=== PATIENT | male | born 1985 | race Caucasian/White ===

== ENCOUNTER 2018-12-04 05:53 | Day surgery (SDC) | payer OTHER ==
[2018-12-04] MEDS ORDERED: ROCURONIUM 50 MG/5 ML VIAL IVP ONE (05:54)
[2018-12-04] MEDS ORDERED: GLYCOPYRROLATE 1 MG/5 ML VIAL IVP ONE (05:54)
[2018-12-04] MEDS ORDERED: DEXAMETHASONE 4 MG/ML VIAL IVP ONE (05:54)
[2018-12-04] MEDS ORDERED: PROPOFOL 200 MG/20 ML VIAL IVP ONE (05:54)
[2018-12-04] MEDS ORDERED: NEOSTIGMINE 1 MG/1 ML 10 ML MDV IVP ONE (05:54)
[2018-12-04] MEDS ORDERED: KETOROLAC 30 MG/ML VIAL IVP ONE (05:54)
[2018-12-04] MEDS ORDERED: MIDAZOLAM 2 MG/2 ML VIAL IVP ONE (05:54)
[2018-12-04] MEDS ORDERED: fentaNYL 100 MCG/2 ML VIAL IVP ONE (05:54)
[2018-12-04] MEDS ORDERED: LACTATED RINGERS 1,000 ML IV ONE ×2 (06:19→10:06)
[2018-12-04] MEDS ORDERED: cefTRIAXone 2 GM VIAL ONE (06:58)
[2018-12-04] MEDS ORDERED: EPINEPHrine 1 MG/ML AMP ONE (07:18)
[2018-12-04] MEDS ORDERED: BUPIVACAINE 0.25% PF 30 ML VIAL ONE (07:42)
--- NOTE | 2018-12-04 08:18 | ANESTHESIA ---
Pre-Anesthesia VS, & Labs - Diagnosis R shoulder labral tear - Procedure R shoulder arthroscopy. Labral repair, possible biceps tenodesis Vital Signs: Temp Pulse Resp BP Pulse Ox 37.5 C 56 L 16 127/73 98 12/04/18 06:36 12/04/18 06:36 12/04/18 06:36 12/04/18 06:36 12/04/18 06:36 Height 5 ft 11 in Weight (kg) 113.4 kg - NPO >8 hours Home Medications and Allergies Home Medications: Ambulatory Orders Melatonin 5 mg PO PRN 12/01/18 Multivitamin [Daily Multiple Vitamin] 1 each PO 12/01/18 Trazodone HCl 50 mg PO PRN 12/01/18 Melatonin 5 mg PO PRN 12/01/18 Multivitamin [Daily Multiple Vitamin] 1 each PO 12/01/18 Trazodone HCl 50 mg PO PRN 12/01/18 Allergies/Adverse Reactions: Allergies Allergy/AdvReac Type Severity Reaction Status Date / Time No Known Drug Allergies Allergy Verified 12/01/18 11:17 Anes History & Medical History - Anesthetic History Anesthesia Complications: reports: No previous complications Family history of Anesthesia Complications: Denies Family history of Malignant Hyperthermia: Denies - Medical History Cardiovascular: reports: None Pulmonary: reports: Sleep apnea, CPAP use Gastrointestinal: reports: None Urinary: reports: None Musculoskeletal: reports: Other Endocrine/Autoimmune: reports: None Skin: reports: None - Surgical History Orthopedic: ACL reconstruction Exam General: Alert, Oriented x3, Cooperative Dental: WNL Mouth Opening: Greater than 4 Fingerbreadths Neck Mobility: Normal Mallampati classification: II Thyromental Distance: 4-6 cm Respiratory: Lungs clear Cardiovascular: Regular rate Neurological: Normal speech Mental/Cognitive Status: Alert/Oriented X3, Normal for patient Cognitive Status: Within normal limits Plan Anesthesia Type: General, Interscalene Block Regional Block: Per Surgeon's request for Post Op pain control Consent for Procedure(s) Verified and Reviewed: Yes Code Status: Attempt Resuscitation ASA classification: 2-Mild systemic disease Is this case an emergency?: No
[2018-12-04] MEDS ORDERED: BUPIVACAINE 0.25% PF 30 ML VIAL SUBQ ONE ×2 (08:38)
[2018-12-04] MEDS ORDERED: ONDANSETRON 4 MG/2 ML VIAL IVP PRN (10:08)
[2018-12-04] MEDS ORDERED: oxyCODONE 5 MG TABLET PO PRN (10:08)
--- NOTE | 2018-12-04 10:19 | OPERATIVE REPORT ---
Operative Report - Other Other Information/Narrative: Date of Surgery: 04 December 2018 Pre-Op Diagnosis: Right biceps tendinitis. Partial-thickness rotator cuff tear. Possible labral tear Procedure: Right shoulder arthroscopy with intra-articular debridement. Rotator cuff debridement. Subacromial decompression. Open biceps tenodesis Postop Diagnosis: Right biceps tendinitis with SLAP tear, partial-thickness articular sided supraspinatus tear less than 50% of the insertion, posterior labrum stable Primary Surgeon: Dago Smiley Secondary Surgeon: Charanjit Bentley Complications: None EBL: 15 cc IMPLANTS: Arthrex fiber tack x1 POSTOPERATIVE PLAN: 0-2 weeks-Sling at all times. Pendulum exercises 5 times per day. 2-6 weeks-Passive and active range of motion without limitations. No flexion of the elbow 6-12 weeks-may begin active flexion of the elbow but without resistance. 12 weeksbegin strengthening of elbow flexion EXAMINATION UNDER ANESTHESIA: ROM: Full Anterior load and shift: Stable Posterior load and shift: Grade 1 without crepitus Inferior sulcus: Stable ARTHROSCOPIC FINDINGS: Rotator interval: Injected with a degenerative tear Biceps tendon & SLAP: Moderate to severe fraying of the biceps tendon at its insertion. It was thickened and unhealthy. SLAP tear extended posteriorly Subscapularis: Intact, this was probed extensively and no tear was seen Rotator Cuff: Partial thickness articular sided tear of the leading edge of supraspinatus. This was debrided to a stable base. It represented less than 5 mm of insertion. Infraspinatus intact. HAGL: Normal Labrum: Small crack in the posterior labrum which was an extension of the SLAP tear, it was stable to probing but there was some fraying. The frayed material was debrided with a shaver. Glenoid Cartilage: Chronic transverse linear cartilage lesion was seen, borders were stable, no debridement was necessary Humeral Head Cartilage: Intact Subacromial space: Mild bursitis was debrided. There was no bursal sided rotator cuff tear INDICATION FOR SURGERY: 32-year-old male who injured his shoulder 2 years ago. He fell onto his outstretched arm. He had no instability or dislocation. There is pain to the anterior shoulder that was worse with overhead activities. A biceps tendon sheath injection provided 100% relief and he was able to get back to many activities. He was unable to lift weights secondary to weakness. We went into the surgery knowing a biceps tenodesis would be beneficial but there is a question of a posterior labral tear that would require repair. 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 Nonoperative managment failed to resolve symptoms. The risks, benefits, and alternatives were discussed. Risks included pain, bleeding, infection, damage to nearby structures, lack of symptom relief, implant complications, stiffness, need for further surgeries, DVT, PE, stroke, and even . He signed a written consent form. PROCEDURE IN DETAIL: The patient was met in the preoperative holding on the day of the procedure. Operative extremity was signed. Consent was verified. They desired to proceed. Regional anesthesia was obtained in the preoperative area. They were brought to the operating room and surrendered to anesthesia. Once general anesthesia was obtained they were placed in the lateral decubitus position with the operative side up. An axillary roll was placed and all bony prominences were well-padded. A surgical timeout was held to confirm the patient procedure, identity, procedure, laterality, allergies, images, and antibiotics. All were in agreement we proceeded. A standard diagnostic arthroscopy was performed utilizing posterior and anterosuperior portals. The anterosuperior portal was created under direct visualization and localized with a spinal needle. The 7 mm cannula was placed anteriorly. The findings of the diagnostic arthroscopy can be found above. Another anterior cannula was placed to allow and debridement of the rotator cuff. I then proceeded to use a shaver to debride the leading edge of the rotator cuff as well as the tears in the rotator interval and the fraying of the posterior labrum. All this was debrided to a stable base and final images were taken. I elected to not to take down the posterior labrum for 2 reasons. The first was that it did not seem unstable, and the second was that a rapid recovery is desired and that most of his symptoms seem to be related biceps tendon itself. I decided to perform the biceps procedure and then monitor his symptoms afterwards. If he has significant pain or problems we could then move forward with a labral repair at a later date if needed. SUBACROMIAL DECOMPRESSION: The instruments and cannula were then removed from the glenohumeral joint. The scope trocar was placed in the posterior portal and the acromion was felt. It was then inserted just under the acromion scraping along the bone until the CA ligament was felt. The scope trocar was then brought just lateral to the CA ligament and out the anterior incision. The cannula was then brought over the scope trocar arthroscope were inserted. The arthroscope was backed up until the shaver and arthroscope in the subacromial space. I then systemically debrided the bursa using a sucker shaver and radiofrequency ablation wand. A direct lateral incision was made and the bursectomy and decompression was completed through the lateral incision. All soft tissue was debrided from the underside of the acromion and the posterior edge of the CA ligament was lifted. Care was taken to keep the deltoid fascia intact. The rotator cuff was then evaluated and there was bursal sided tear. Final images were taken MINI OPEN BICEPS TENODESIS: A 5 cm incision was made near the axillary fold centered over the pectoralis major tendon. Electrocautery was used to obtain hemostasis. The fascia was opened with dissection scissors. Blunt digital dissection was used to identify the intertubercular groove just under the pectoralis major tendon. The long head of the biceps tendon was visualized within this interval. The short head of the biceps was retracted with my finger and the right angle was used to deliver the tendon of the long head of the biceps out of the wound. A friedman elevator was then used to debride all synovial tissue from the intertubercular groove. A fibertack was placed high within the groove. Both limbs of the fibertack were pulled on and it was well fixed. I then whipstitched the biceps tendon starting 2 cm proximal to the musculotendinous junction down to the musculotendinous junction and back up to the same 2 cm location with a single limb of the suture tack. The other suture was placed once through the tendon at the 2 cm location. I then cut all excess tendon off. The suture limb that was passed the single time was then pulled on and this reduced the tendon nicely into the groove. The elbow was fully straightened and there was no excess tension on the repair site. I then tied 7 reverse half hitches alternating to secure the tendon in its place. The wound was then irrigated copiously. The portal sites were then closed with 3-0 Monocryl buried. Any open incisions were closed with 2-0 Vicryl in the dermis and a running 3-0 Monocryl in the skin. Mastisol and Steri-Strips were applied. A sterile dressing and a sling was applied. A sling was placed. The patient was awakened and transferred to the recovery room.
[2018-12-04] MEDS ORDERED: ONDANSETRON 4 MG/2 ML VIAL ONE (11:09)
[2018-12-04 11:43] VITALS: BP 110/50
== END 2018-12-04 05:54 | disposition home or self-care (01) ==
LOC: SDS 05:53
PROVIDERS: ATTEND Orthopaedic Surgery
PROC: 0RBJ4ZZ Excision of Right Shoulder Joint, Percutaneous Endoscopic Approach (ICD-10-PCS; 2018-12-04)
PROC: 0LS10ZZ Reposition Right Shoulder Tendon, Open Approach (ICD-10-PCS; 2018-12-04)
PROC: 0RNJ4ZZ Release Right Shoulder Joint, Percutaneous Endoscopic Approach (ICD-10-PCS; principal; 2018-12-04 07:30)
DX: S43.431A Superior glenoid labrum lesion of right shoulder, initial encounter (principal); M75.21 Bicipital tendinitis, right shoulder; M75.101 Unspecified rotator cuff tear or rupture of right shoulder, not specified as traumatic; G47.33 Obstructive sleep apnea (adult) (pediatric)
CPT/HCPCS: 23430; 29822; 29826; C1713; J7120

== ENCOUNTER 2020-07-24 06:34 | Emergency (ER) | payer OTHER ==
[2020-07-24] MEDS ORDERED: LIDOCAINE-MPF 2% 9 ML in SODIUM CHLORIDE 0.9% 50 ML IV STA (06:53)
[2020-07-24] MEDS ORDERED: KETOROLAC 30 MG/ML VIAL IVP STA (06:53)
--- NOTE | 2020-07-24 07:00 | ED Physician Documentation ---
PD HPI ABD PAIN - Stated complaint Stated Complaint: ABD PX - Chief complaint Chief Complaint: Abd Pain - History obtained from History obtained from: Patient - History of Present Illness Timing - onset: How many hours ago (2) Timing - duration: Hours (2) Timing - details: Abrupt onset Pain level max: 10 Pain level now: 10 Quality: Aching, Sharp, Pain Location: LLQ Radiation: (L testicle and groin). No: Chest, Lower back, Left flank, Left shoulder, Right flank, Right shoulder, Upper back Improved by: Other (nothing) Worsened by: Other (nothing) Associated symptoms: No: Fever, Nausea, Vomiting, Hematemesis, Diarrhea, Constipation, Melena, Hematochezia, Dysuria, Hematuria, Chest pain Similar symptoms before: Diagnosis (kidney stone about 10 years ago) Recently seen: Not recently seen Review of Systems Constitutional: denies: Fever, Chills Nose: denies: Rhinorrhea / runny nose, Congestion Respiratory: denies: Cough GI: denies: Abdominal Pain, Nausea, Vomiting, Diarrhea : denies: Dysuria, Frequency, Hesitancy, Hematuria, Discharge Skin: denies: Rash Musculoskeletal: denies: Neck pain, Back pain Neurologic: denies: Headache PD PAST MEDICAL HISTORY - Past Medical History Past Medical History: Yes Cardiovascular: None Respiratory: Sleep apnea, CPAP use Endocrine/Autoimmune: None GI: None : Kidney stones HEENT: None Psych: None Musculoskeletal: Other Derm: None - Past Surgical History Past Surgical History: Yes Ortho: ACL reconstruction - Present Medications Home Medications: Ambulatory Orders Medication Instructions Recorded Confirmed Melatonin 5 mg PO QPM PRN 12/01/18 07/24/20 Multivitamin [Daily Multiple 1 each PO DAILY 12/01/18 07/24/20 Vitamin] Trazodone HCl 50 mg PO QPM PRN 12/01/18 07/24/20 HYDROcod/ACETAM 5/325 [[place] 5/325] 1 - 2 ea PO Q6H PRN #14 tablet 07/24/20 Ibuprofen [Motrin] 800 mg PO Q8H PRN #30 tablet 07/24/20 Ondansetron Odt [Zofran] 4 mg TL Q6H PRN #10 tablet 07/24/20 - Allergies Allergies/Adverse Reactions: Allergies Allergy/AdvReac Type Severity Reaction Status Date / Time No Known Drug Allergies Allergy Verified 07/24/20 06:40 - Social History Does the pt smoke?: No Smoking Status: Never smoker Does the pt drink ETOH?: Yes Does the pt have substance abuse?: No - Immunizations Immunizations are current?: Yes - POLST Patient has POLST: No PD ED PE NORMAL - Vitals Vital signs reviewed: Yes - General General: Alert and oriented X 3, No acute distress, Well developed/nourished - HEENT HEENT: PERRL, Moist mucous membranes - Neck Neck: Supple, no meningeal sign - Cardiac Cardiac: RRR, Strong equal pulses - Respiratory Respiratory: No respiratory distress, Clear bilaterally - Abdomen Abdomen: Normal bowel sounds, Soft, Non tender, Non distended - Male Male : Other (Normal testicular and scrotal exam.) - Back Back: No CVA TTP - Derm Derm: Warm and dry - Extremities Extremities: No calf tenderness / cord - Neuro Neuro: Alert and oriented X 3 - Psych Psych: Normal mood, Normal affect Results - Vitals Vitals: Vital Signs - 24 hr 07/24/20 07/24/20 06:37 08:39 Temperature 36.8 C Heart Rate 49 L 58 L Respiratory 18 16 Rate Blood Pressure 149/51 H 142/75 H O2 Saturation 99 100 Oxygen O2 Source Room air - Labs Labs: Laboratory Tests 07/24/20 07/24/20 07/24/20 06:56 06:56 06:56 WBC 7.0 RBC 4.90 Hgb 15.3 Hct 43.3 MCV 88.4 MCH 31.2 H MCHC 35.3 RDW 11.8 L Plt Count 127 L MPV 13.2 H Neut # (Auto) 5.2 Lymph # (Auto) 1.2 L Barry # (Auto) 0.5 Eos # (Auto) 0.1 Baso # (Auto) 0.0 Absolute Nucleated RBC 0.00 Nucleated RBC % 0.0 Sodium 141 Potassium 3.6 Chloride 104 Carbon Dioxide 27 Anion Gap 10.0 BUN 20 Creatinine 1.1 Estimated GFR (MDRD) 76 L Glucose 120 H Calcium 8.9 Total Bilirubin 0.8 AST 30 ALT 52 Alkaline Phosphatase 63 Total Protein 7.2 Albumin 4.3 Globulin 2.9 Albumin/Globulin Ratio 1.5 Lipase 31 Urine Color DARK YELLOW Urine Clarity CLEAR Urine pH 5.5 Ur Specific Dema >=1.030 H Urine Protein NEGATIVE Urine Glucose (UA) NEGATIVE Urine Ketones NEGATIVE Urine Occult Blood LARGE H Urine Nitrite NEGATIVE Urine Bilirubin NEGATIVE Urine Urobilinogen 0.2 (NORMAL) Ur Leukocyte Esterase NEGATIVE Urine RBC 11-25 H Urine WBC 0-3 Ur Squamous Epith Cells NONE SEEN Urine Crystals 0-2 Calcium Oxalate Urine Bacteria Few Ur Microscopic Review INDICATED Urine Culture Comments NOT INDICATED - Rads (name of study) CT abd/pelvis Radiology: Prelim report reviewed, EMP read contemporaneously, See rad report PD MEDICAL DECISION MAKING - ED course Complexity details: reviewed results, re-evaluated patient, considered differential, d/w patient ED course: Patient with left-sided ureteral stone. Pain well controlled with Toradol and lidocaine. Afebrile. No evidence of UTI. No evidence of sepsis. Will place on pain medications for home and have him follow-up with his doctor. Patient counseled regarding signs and symptoms for which I believe and urgent re- evaluation would be necessary. Patient with good understanding of and agreement to plan and is comfortable going home at this time This document was made in part using voice recognition software. While efforts are made to proofread this document, sound alike and grammatical errors may occur. IMPRESSION: 1. Obstructing 4 mm urinary stone in the distal left ureter with mild left hydroureteronephrosis. 2. Small additional nonobstructing bilateral renal stones as described. 3. Colonic diverticulosis without acute diverticulitis. Departure - Departure Disposition: 01 Home, Self Care Clinical Impression: Kidney stone on left side Condition: Good Instructions: ED Stone Renal W Colic Follow-Up: your,doctor in 1 week [Other] Prescriptions: Ibuprofen [Motrin] 800 mg PO Q8H PRN #30 tablet PRN Reason: PAIN &/OR FEVER HYDROcod/ACETAM 5/325 [[place] 5/325] 1 - 2 ea PO Q6H PRN #14 tablet PRN Reason: Pain Ondansetron Odt [Zofran] 4 mg TL Q6H PRN #10 tablet PRN Reason: Nausea / Vomiting Comments: Drink plenty of fluids. Return if you worsen. Follow-up with your doctor for further care. The Motrin will help to stop the spasming of the ureter, you can use the Vicodin for breakthrough pain. Do not drink alcohol or drive while on narcotic pain medicine. Note that many narcotic pain relievers also contain tylenol/acetaminophen. Please ensure that your total dose of acetaminophen from all sources does not exceed 3 grams (3000mg) per day. You may constipated on this medication, take a stool softener such as "Colace" twice a day while you are on it. Also recommend a [id number] laxative such as senna or MiraLAX any day that you do not have a bowel movement. If you received narcotic pain medication in the emergency department, do not drive or operate machinery for the next 24 hours. IMPRESSION: 1. Obstructing 4 mm urinary stone in the distal left ureter with mild left hydroureteronephrosis. 2. Small additional nonobstructing bilateral renal stones as described. 3. Colonic diverticulosis without acute diverticulitis. Discharge Date/Time: 07/24/20 09:06
[2020-07-24 07:02] LABS: BILIRUBIN,URINE NEGATIVE (NEGATIVE); GLUCOSE, URINE (UA) NEGATIVE (NEGATIVE); KETONES,URINE (UA) NEGATIVE (NEGATIVE); LEUKOCYTE ESTERASE, URINE NEGATIVE (NEGATIVE); NITRITE,URINE NEGATIVE (NEGATIVE); OCCULT BLOOD,URINE LARGE (NEGATIVE); PH,URINE 5.5 PH (5.0-7.5); PROTEIN,URINE NEGATIVE (NEGATIVE); UROBILINOGEN,URINE 0.2 (NORMAL) E.U./dL (NORMAL)
[2020-07-24 07:09] LABS: CLARITY,URINE CLEAR (CLEAR)
[2020-07-24 07:11] LABS: BASOPHILS % (AUTO) 0.3 %; EOSINOPHILS # (AUTO) 0.1 10^3/uL (0.0-0.7); EOSINOPHILS % (AUTO) 1.4 %; HCT - HEMATOCRIT 43.3 % (42.0-52.0); HGB - HEMOGLOBIN 15.3 g/dL (14.0-18.0); LYMPHOCYTES # (AUTO) 1.2 10^3/uL (1.5-3.5); LYMPHOCYTES % (AUTO) 17.7 %; MEAN CORPUSCULAR HEMOGLOBIN 31.2 pg (27.0-31.0); MEAN CORPUSCULAR HGB CONC 35.3 g/dL (32.0-36.0); MEAN CORPUSCULAR VOLUME 88.4 fL (80.0-94.0); MEAN PLATELET VOLUME 13.2 fL (7.4-11.4); MONOCYTES # (AUTO) 0.5 10^3/uL (0.0-1.0); MONOCYTES % (AUTO) 6.6 %; NEUTROPHILS # (AUTO) 5.2 10^3/uL (1.5-6.6); NEUTROPHILS % (AUTO) 73.9 %; PLT - PLATELET COUNT 127 10^3/uL (130-450); RED CELL DISTRIBUTION WIDTH 11.8 % (12.0-15.0)
[2020-07-24 07:15] LABS: ALBUMIN 4.3 g/dL (3.2-5.5); ALBUMIN/GLOBULIN RATIO 1.5 (1.0-2.2); BILIRUBIN,TOTAL 0.8 mg/dL (0.2-1.0); CALCIUM 8.9 mg/dL (8.5-10.3); CREATININE 1.1 mg/dL (0.6-1.2); POTASSIUM 3.6 mmol/L (3.5-5.0); TOTAL PROTEIN 7.2 g/dL (6.7-8.2)
[2020-07-24] MEDS ORDERED: IOVERSOL 320 100 ML VIAL IVP ONE ×2 (07:21→07:41)
[2020-07-24 07:27] LABS: BACTERIA,URINE Few /HPF (None Seen); SQUAMOUS EPITHELIAL CELL,UR NONE SEEN (<= Few); WBC,URINE 0-3 /HPF (0-3)
[2020-07-24 07:28] LABS: CRYSTALS,URINE 0-2 Calcium Oxalate /LPF
--- NOTE | 2020-07-24 08:26 | CT Report ---
PROCEDURE: Abdomen/Pelvis W INDICATIONS: LLQ abd pain CONTRAST: IV CONTRAST: Optiray 320 ml: 100 PO CONTRAST: *NO PO CONTRAST TECHNIQUE: After the administration of intravenous contrast, 5 mm thick sections acquired from the diaphragms to the symphysis. 5 mm thick coronal and sagittal reformats were acquired. For radiation dose reducti on, the following was used: automated exposure control, adjustment of mA and/or kV according to mayda ent size. COMPARISON: None. FINDINGS: Image quality: Excellent. ABDOMEN: Lung bases: There is mild dependent atelectasis bilaterally. Heart size is normal. Solid organs: Evaluation of the liver demonstrates no focal hepatic lesions. Gallbladder appears wit hin normal limits without calcified gallstones. Biliary system is non dilated. The spleen is normal in size. Pancreas enhances normally without peripancreatic fat stranding or fluid collections. No ad renal nodules. There is an uncertain stone within the distal left ureter measuring up to 0.4 cm. There is mild assoc iated left hydroureteronephrosis. There is also mild perinephric and perirenal fat stranding with asy mmetric mildly delayed left renal enhancement. Evaluation for small stones is limited in the presence of intravenous contrast. There is a small 0.2 cm nonobstructing left renal stone. Within the right k idney, there is a small 0.3 cm nonobstructing stone. No right hydronephrosis. Right ureter is nondist ended. Peritoneum and bowel: Bowel loops demonstrate normal wall thickness and caliber. No evidence of bari endicitis. There is colonic diverticulosis without acute diverticulitis. No free fluid or air. Nodes and vessels: No retroperitoneal or mesenteric adenopathy by size criteria. Aorta and inferior vena cava are normal in size. Miscellaneous: No ventral hernias. PELVIS: Genitourinary: Bladder wall thickness is normal. The urine bladder is partially distended. No calcif ied bladder stones. Miscellaneous: There is a small fat-containing left inguinal hernia. No inguinal adenopathy. Bones: No suspicious bony lesions. No vertebral body compression fractures. IMPRESSION: 1. Obstructing 4 mm urinary stone in the distal left ureter with mild left hydroureteronephrosis. 2. Small additional nonobstructing bilateral renal stones as described. 3. Colonic diverticulosis without acute diverticulitis. Reviewed by: Delvin Mejia MD on 07/24/2020 8:24 AM PDT Approved by: Delvin Mejia MD on 07/24/2020 8:24 AM PDT Station ID: [id number]
[2020-07-24 08:40] VITALS: BP 142/75
== END 2020-07-24 09:06 | disposition home or self-care (01) ==
LOC: ED 06:34
DX: N13.2 Hydronephrosis with renal and ureteral calculous obstruction (principal); Z87.442 Personal history of urinary calculi
CPT/HCPCS: 36415; 74177; 80053; 81001; 83690; 85025; 96365; 96375; 99284; J7040; Q9967; 81003; 87086

== ENCOUNTER 2020-11-01 09:07 | Emergency (ER) | payer OTHER ==
[2020-11-01 09:27] VITALS: BP 127/67
--- NOTE | 2020-11-01 10:01 | ED Physician Documentation ---
PD HPI LOWER EXT INJURY - Stated complaint Stated Complaint: L LEG INJURY - Chief complaint Chief Complaint: Trauma Ext - History obtained from History obtained from: Patient - History of Present Illness PD HPI LOW EXT INJURY LOCATION: Left, Lower leg Type of injury: Other (Running) Where injury occurred: Street Timing - onset: How many days ago (last pm) Timing - details: Abrupt onset Improved by: Nothing Worsened by: Moving Associated symptoms: No: Weakness, Numbness, Tingling, Swelling Recently seen: Not recently seen - Additional information Additional information: A 4-year-old who presents with complaints that he was running last night stepped off the curb and as he pushed off with his left foot he felt a pop in the calf in the upper aspect. He did not fall down but he had to stop running and he limped back home iced it he did it and took ibuprofen last night got up this morning is still very painful to white walk and his thought that the leg looked "dimpled in". He has no pain at rest but there is pain if he dorsiflex the ankle. 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 Review of Systems Respiratory: denies: Dyspnea Musculoskeletal: reports: Extremity pain, Extremity swelling, Pain with weight bearing Neurologic: denies: Focal weakness, Numbness PD PAST MEDICAL HISTORY - Past Medical History Past Medical History: Yes Cardiovascular: None Respiratory: Sleep apnea, CPAP use Neuro: None Endocrine/Autoimmune: None GI: None : Kidney stones HEENT: None Psych: None Musculoskeletal: Other Derm: Other - Past Surgical History Past Surgical History: Yes Ortho: ACL reconstruction - Present Medications Home Medications: Ambulatory Orders Medication Instructions Recorded Confirmed Melatonin 5 mg PO QPM PRN 12/01/18 11/01/20 Multivitamin [Daily Multiple 1 each PO DAILY 12/01/18 11/01/20 Vitamin] Trazodone HCl 50 mg PO QPM PRN 12/01/18 11/01/20 - Allergies Allergies/Adverse Reactions: Allergies Allergy/AdvReac Type Severity Reaction Status Date / Time No Known Drug Allergies Allergy Verified 11/01/20 09:23 - Social History Does the pt smoke?: No Smoking Status: Never smoker Does the pt drink ETOH?: Yes Does the pt have substance abuse?: No - Immunizations Immunizations are current?: Yes - POLST Patient has POLST: No PD ED PE NORMAL - Vitals Vital signs reviewed: Yes - General General: Alert and oriented X 3, No acute distress, Well developed/nourished - HEENT HEENT: Atraumatic - Derm Derm: Normal color, Warm and dry - Extremities Extremities: Other (Left gastrocnemius muscle does appear little swollen compared to the right. It is tender in the mid aspect without evidence of bruising. The Achilles tendon is intact. 5 out of 5 ankle dorsiflexion and plantar flexion. Station intact. He has a 2+ dorsalis pedis pulse and posterior tibial pulse.) - Neuro Neuro: Alert and oriented X 3 Results - Vitals Vitals: Vital Signs - 24 hr 11/01/20 09:24 Temperature 36.5 C Heart Rate 60 Respiratory 16 Rate Blood Pressure 127/67 O2 Saturation 99 Oxygen O2 Source Room air PD MEDICAL DECISION MAKING - ED course Complexity details: d/w patient ED course: Achilles tendon is intact. Likely small tear of the gastrocnemius muscle without evidence of compartment syndrome. Recommended elevation and ice. He was given an injection of Toradol here. Continue anti-inflammatories [id number] at home. Avoid running, prolonged standing and do passive range of motion exercises at the ankle.Placed on work restrictions of sitdown work only for 3 days and was provided with crutches to help with ambulation[place] Departure - Departure Disposition: 01 Home, Self Care Clinical Impression: Gastrocnemius muscle strain Condition: Good Instructions: ED Crutch Walking, ED Strain Muscle Ext Follow-Up: [facility] [Provider Group] Comments: Sit down work only for 3 days. Crutches for comfort. Ice the calf. Range of motion exercises at ankle to gently work the gastrocnemius muscle. Ibprofen 3-4 tablets every 8 hours with food for 4-5 days. [place] not [place] and as needed. Discharge Date/Time: 11/01/20 10:44
[2020-11-01] MEDS ORDERED: KETOROLAC 60 MG/2 ML VIAL IM STA (10:21)
== END 2020-11-01 10:44 | disposition home or self-care (01) ==
LOC: ED 09:07
DX: S86.112A Strain of other muscle(s) and tendon(s) of posterior muscle group at lower leg level, left leg, initial encounter (principal); W18.41XA Slipping, tripping and stumbling without falling due to stepping on object, initial encounter; Y93.02 Activity, running; Y92.410 Unspecified street and highway as the place of occurrence of the external cause
CPT/HCPCS: 96372; 99283

== ENCOUNTER 2021-06-11 09:01 | Emergency (ER) | payer OTHER ==
--- NOTE | 2021-06-11 09:49 | ED Physician Documentation ---
PD HPI BACK PAIN - Stated complaint Stated Complaint: LOWER BACK PX - Chief complaint Chief Complaint: Back Pain - History obtained from History obtained from: Patient - History of Present Illness Timing - onset: How many days ago (2) Timing - duration: Days (2) Timing - details: Gradual onset, Still present Location: Lower Quality: Pain, Spasm, Sharp, Similar to prior episodes Associated symptoms: Fever. 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 His pain was bad enough that he has been unable to sleep and he is having trouble getting out of bed. He is using ice and stretch he is getting some relief with that. He has had this happen to him previously. He denies a problem with hydration currently. He denies any saddle anesthesia or trouble with his bowel or bladder. He denies any radiation of pain or numbness down either leg. Review of Systems Constitutional: denies: Fever Ears: denies: Ear pain Nose: denies: Congestion Throat: denies: Sore throat Respiratory: denies: Cough GI: denies: Vomiting, Diarrhea : denies: Dysuria, Frequency Skin: denies: Rash Musculoskeletal: reports: Back pain. denies: Neck pain, Extremity pain Neurologic: denies: Generalized weakness, Focal weakness, Numbness PD PAST MEDICAL HISTORY - Past Medical History Cardiovascular: None Respiratory: Sleep apnea, CPAP use Neuro: None Endocrine/Autoimmune: None GI: None : Kidney stones HEENT: None Psych: None Musculoskeletal: Other Derm: Other - Past Surgical History Past Surgical History: Yes Ortho: ACL reconstruction - Present Medications Home Medications: Ambulatory Orders Medication Instructions Recorded Confirmed Melatonin 5 mg PO QPM PRN 12/01/18 06/11/21 Multivitamin [Daily Multiple 1 each PO DAILY 12/01/18 06/11/21 Vitamin] Trazodone HCl 50 mg PO QPM PRN 12/01/18 06/11/21 Cyclobenzaprine [Flexeril] 10 mg PO TID PRN #20 tablet 06/11/21 HYDROcod/ACETAM 5/325 [[place] 5/325] 1 - 2 tablet PO Q6H PRN #14 tablet 06/11/21 - Allergies Allergies/Adverse Reactions: Allergies Allergy/AdvReac Type Severity Reaction Status Date / Time No Known Drug Allergies Allergy Verified 11/01/20 09:23 - Social History Does the pt smoke?: No Smoking Status: Never smoker Does the pt drink ETOH?: Yes Does the pt have substance abuse?: No - Immunizations Immunizations are current?: Yes - POLST Patient has POLST: No PD ED PE NORMAL - Vitals Vital signs reviewed: Yes (Hypertensive mild) - General General: Alert and oriented X 3, Well developed/nourished, Other (The patient is splinting and moves slowly) - HEENT HEENT: Atraumatic, PERRL, EOMI - Respiratory Respiratory: No respiratory distress - Back Back: No CVA TTP, No spinal TTP, Other (There is pain across the lower lumbar s pine just above the SI joints bilaterally) - Derm Derm: Normal color, Warm and dry, No rash - Extremities Extremities: No deformity, No edema - Neuro Neuro: Alert and oriented X 3, clinical services assistant 2-12 intact, No motor deficit, No sensory deficit, Normal speech Eye Opening: Spontaneous Motor: Obeys Commands Verbal: Oriented GCS Score: 15 - Psych Psych: Normal mood, Normal affect Results - Vitals Vitals: Vital Signs - 24 hr 06/11/21 09:05 Temperature 36.4 C L Heart Rate 66 Respiratory 16 Rate Blood Pressure 136/74 H O2 Saturation 99 Oxygen O2 Source Room air PD MEDICAL DECISION MAKING - ED course Complexity details: reviewed old records, considered differential, d/w patient ED course: 35-year-old male with acute lumbar spasm has had symptoms for 3 days and is having some difficulty sleeping. Here he is administered dexamethasone 10 mg orally and Toradol 60 [address] IM[address] will place him on a short course of pain medication a muscle relaxant and have him follow-up with his primary.I recommended to the patient to avoid using a heating pack and use ice and stretch. Departure - Departure Disposition: 01 Home, Self Care Clinical Impression: Lumbar paraspinal muscle spasm Condition: Stable Instructions: ED Spasm Back No Trauma Follow-Up: RICHARD HIDALGO MD [Primary Care Provider] - Prescriptions: Cyclobenzaprine [Flexeril] 10 mg PO TID PRN #20 tablet PRN Reason: Spasms HYDROcod/ACETAM 5/325 [[place] 5/325] 1 - 2 tablet PO Q6H PRN #14 tablet PRN Reason: Pain Comments: Gabo, today it looks like you have muscle spasm in your lower lumbar spine. this is usually an overuse injury and the expected outcome is resolution within 2 to 5 days. Today we have given you a dose of dexamethasone which over the day today will improve this. I have also prescribed some pain medication and a muscle relaxant for use at home and this has been E [facility]. The expectation is complete recovery within a week. Forms: Activity restrictions
[2021-06-11] MEDS: CHERRY SYRUP 10 ML UDC PO ONE (09:57)
[2021-06-11] MEDS: KETOROLAC 60 MG/2 ML VIAL IM STA (09:57)
[2021-06-11] MEDS: DEXAMETHASONE 10 MG/ML VIAL PO STA (09:57)
[2021-06-11 10:13] VITALS: BP 135/75
== END 2021-06-11 10:13 | disposition home or self-care (01) ==
LOC: ED 09:01
DX: M62.830 Muscle spasm of back (principal)
CPT/HCPCS: 96372; 99283; 99284; A9270

== ENCOUNTER 2021-06-17 00:11 | Emergency (ER) | payer OTHER ==
[2021-06-17 00:49] LABS: BASOPHILS # (AUTO) 0.1 10^3/uL (0.0-0.1); BASOPHILS % (AUTO) 0.4 %; EOSINOPHILS # (AUTO) 0.1 10^3/uL (0.0-0.7); EOSINOPHILS % (AUTO) 0.9 %; HCT - HEMATOCRIT 43.4 % (42.0-52.0); HGB - HEMOGLOBIN 15.8 g/dL (14.0-18.0); LYMPHOCYTES # (AUTO) 1.7 10^3/uL (1.5-3.5); LYMPHOCYTES % (AUTO) 11.5 %; MEAN CORPUSCULAR HEMOGLOBIN 31.9 pg (27.0-31.0); MEAN CORPUSCULAR HGB CONC 36.4 g/dL (32.0-36.0); MEAN CORPUSCULAR VOLUME 87.7 fL (80.0-94.0); MEAN PLATELET VOLUME 13.3 fL (7.4-11.4); MONOCYTES # (AUTO) 1.2 10^3/uL (0.0-1.0); MONOCYTES % (AUTO) 8.1 %; NEUTROPHILS # (AUTO) 11.7 10^3/uL (1.5-6.6); NEUTROPHILS % (AUTO) 78.8 %; PLT - PLATELET COUNT 131 10^3/uL (130-450); RED BLOOD COUNT 4.95 10^6/uL (4.70-6.10); RED CELL DISTRIBUTION WIDTH 11.9 % (12.0-15.0); WHITE BLOOD COUNT 14.8 x10^3/uL (4.8-10.8)
--- NOTE | 2021-06-17 00:54 | ED Physician Documentation ---
PD HPI ABD PAIN - Stated complaint Stated Complaint: R ABD PX - Chief complaint Chief Complaint: Abd Pain - History obtained from History obtained from: Patient - History of Present Illness Timing - onset: Enter time (18:00), Today Timing - details: Gradual onset, Constant Pain level now: 5 Quality: Pain Location: RLQ Radiation: Other (no radiation) Improved by: Laying still Worsened by: Moving, Breathing, Palpation Associated symptoms: No: Fever, Nausea, Vomiting, Diarrhea, Constipation Similar symptoms before: Has not had sx before Recently seen: Emergency Dept (+06/11 for low back pain, prescribed flexeril and vicodin) - Additional information Additional information: c/o RLQ abdominal pain, rapid onset approximately 6 PM while at home at rest. Denies h/o similar pain. Pain is worse with movement, palpation, and deep inspiration. Denies fever. Review of Systems Constitutional: reports: Reviewed and negative Cardiac: reports: Reviewed and negative Respiratory: reports: Reviewed and negative GI: reports: Abdominal Pain. denies: Nausea, Vomiting, Constipation, Diarrhea : denies: Dysuria, Frequency Skin: reports: Reviewed and negative Musculoskeletal: reports: Back pain (has been steadily improving since R 06/11 from this ED) Neurologic: reports: Reviewed and negative PD PAST MEDICAL HISTORY - Past Medical History Past Medical History: Yes Cardiovascular: None Respiratory: Sleep apnea, CPAP use Neuro: None Endocrine/Autoimmune: None GI: None : Kidney stones HEENT: None Psych: None Musculoskeletal: Other Derm: Other - Past Surgical History Past Surgical History: Yes Ortho: ACL reconstruction - Present Medications Home Medications: Ambulatory Orders Medication Instructions Recorded Confirmed Melatonin 5 mg PO QPM PRN 12/01/18 06/17/21 Multivitamin [Daily Multiple 1 each PO DAILY 12/01/18 06/17/21 Vitamin] Trazodone HCl 50 mg PO QPM PRN 12/01/18 06/17/21 Cyclobenzaprine [Flexeril] 10 mg PO TID PRN #20 tablet 06/11/21 06/17/21 HYDROcod/ACETAM 5/325 [[place] 5/325] 1 - 2 tablet PO Q6H PRN #14 tablet 06/11/21 06/17/21 - Allergies Allergies/Adverse Reactions: Allergies Allergy/AdvReac Type Severity Reaction Status Date / Time No Known Drug Allergies Allergy Verified 06/17/21 00:20 - Social History Does the pt smoke?: No Smoking Status: Never smoker Does the pt drink ETOH?: Yes Does the pt have substance abuse?: No - Immunizations Immunizations are current?: Yes - POLST Patient has POLST: No PD ED PE NORMAL - Vitals Vital signs reviewed: Yes - General General: Alert and oriented X 3, No acute distress, Well developed/nourished - HEENT HEENT: Moist mucous membranes - Cardiac Cardiac: RRR, No murmur - Respiratory Respiratory: No respiratory distress, Clear bilaterally - Abdomen Abdomen: Soft, Non distended, Other (RLQ tenderness to light palpation without rebound tenderness. (+) Rovsings sign) - Back Back: No CVA TTP Results - Vitals Vitals: Vital Signs - 24 hr 06/17/21 06/17/21 06/17/21 00:16 02:20 04:04 Temperature 36.9 C Heart Rate 73 77 75 Respiratory 18 17 20 Rate Blood Pressure 162/75 H 127/59 L 127/59 L O2 Saturation 98 99 Oxygen O2 Source Room air - Labs Labs: Laboratory Tests 06/17/21 06/17/21 06/17/21 00:30 00:30 03:26 WBC 14.8 H RBC 4.95 Hgb 15.8 Hct 43.4 MCV 87.7 MCH 31.9 H MCHC 36.4 H RDW 11.9 L Plt Count 131 MPV 13.3 H Neut # (Auto) 11.7 H Lymph # (Auto) 1.7 [place] # (Auto) 1.2 H Eos # (Auto) 0.1 Baso # (Auto) 0.1 Absolute Nucleated RBC 0.00 Nucleated RBC % 0.0 Sodium 139 Potassium 3.6 Chloride 101 Carbon Dioxide 29 Anion Gap 9.0 BUN 20 Creatinine 1.1 Estimated GFR (MDRD) 75 L Glucose 101 H Calcium 9.2 Total Bilirubin 0.5 AST 18 ALT 29 Alkaline Phosphatase 63 Total Protein 7.3 Albumin 4.1 Globulin 3.2 Albumin/Globulin Ratio 1.3 Lipase 35 Urine Color YELLOW Urine Clarity CLEAR Urine pH 6.0 Ur Specific [place] 1.020 Urine Protein NEGATIVE Urine Glucose (UA) NEGATIVE Urine Ketones NEGATIVE Urine Occult Blood NEGATIVE Urine Nitrite NEGATIVE Urine Bilirubin NEGATIVE Urine Urobilinogen 1 (NORMAL) Ur Leukocyte Esterase NEGATIVE Ur Microscopic Review NOT INDICATED Urine Culture Comments NOT INDICATED SARS-CoV-2 (PCR) 06/17/21 03:35 WBC RBC Hgb Hct MCV MCH MCHC RDW Plt Count MPV Neut # (Auto) Lymph # (Auto) [place] # (Auto) Eos # (Auto) Baso # (Auto) Absolute Nucleated RBC Nucleated RBC % Sodium Potassium Chloride Carbon Dioxide Anion Gap BUN Creatinine Estimated GFR (MDRD) Glucose Calcium Total Bilirubin AST ALT Alkaline Phosphatase Total Protein Albumin Globulin Albumin/Globulin Ratio Lipase Urine Color Urine Clarity Urine pH Ur Specific [place] Urine Protein Urine Glucose (UA) Urine Ketones Urine Occult Blood Urine Nitrite Urine Bilirubin Urine Urobilinogen Ur Leukocyte Esterase Ur Microscopic Review Urine Culture Comments SARS-CoV-2 (PCR) NOT DETECTED - Rads (name of study) CT A/P with IV contrast Radiology: Prelim report reviewed, See rad report PD MEDICAL DECISION MAKING - ED course Complexity details: reviewed results, re-evaluated patient, considered differential, d/w patient ED course: presents with RLQ pain, significantly tender to palpation of RLQ and (+) Rovsings sign noted He is afebrile with leukocytosis on CBC. CT A/P shows appendicitis without evidence of perforation or abscess. Surgical services are not available throughout this weekend at [facility]. No beds available at [facility]. There are beds available at [facility] [place] and I discussed the case with Dr. Reyez, on-call surgeon at [facility]; he accepts patient for transfer. Patient given IV toradol in ED (initially he declined pain medication; after we reviewed results of tests and diagnosis, I ask again if he needs any pain medication. He is initially ambivalent but eventually decides he would like medication for pain. We discussed options and he would like to start with toradol). Also given IV zosyn prior to transfer. Departure - Departure Disposition: 02 Transfer Acute Care Hosp Clinical Impression: Appendicitis Qualifiers: Appendicitis type: acute appendicitis Acute appendicitis type: with localized peritonitis Appendicitis gangrene presence: without gangrene Appendicitis perforation presence: without perforation Appendicitis abscess presence: without abscess Qualified Code(s): K35.30 - Acute appendicitis with localized peritonitis, without perforation or gangrene Condition: Good Discharge Date/Time: 06/17/21 04:55
[2021-06-17 01:09] LABS: ALBUMIN 4.1 g/dL (3.2-5.5); ALBUMIN/GLOBULIN RATIO 1.3 (1.0-2.2); BILIRUBIN,TOTAL 0.5 mg/dL (0.2-1.0); CALCIUM 9.2 mg/dL (8.5-10.3); CREATININE 1.1 mg/dL (0.6-1.2); POTASSIUM 3.6 mmol/L (3.5-5.0); TOTAL PROTEIN 7.3 g/dL (6.7-8.2)
[2021-06-17] MEDS ORDERED: IOPAMIDOL-300 100 ML VIAL ONE (02:03)
[2021-06-17] MEDS ORDERED: IOPAMIDOL-300 100 ML VIAL IVP ONE (02:27)
[2021-06-17 03:21] VITALS: BP 127/59
[2021-06-17] MEDS ORDERED: KETOROLAC 30 MG/ML VIAL IVP STA (03:36)
[2021-06-17] MEDS ORDERED: SODIUM CHLORIDE 0.9% 1,000 ML IV STA (03:43)
[2021-06-17 03:54] LABS: BILIRUBIN,URINE NEGATIVE (NEGATIVE); GLUCOSE, URINE (UA) NEGATIVE (NEGATIVE); KETONES,URINE (UA) NEGATIVE (NEGATIVE); LEUKOCYTE ESTERASE, URINE NEGATIVE (NEGATIVE); NITRITE,URINE NEGATIVE (NEGATIVE); OCCULT BLOOD,URINE NEGATIVE (NEGATIVE); PROTEIN,URINE NEGATIVE (NEGATIVE); UROBILINOGEN,URINE 1 (NORMAL) E.U./dL (NORMAL)
[2021-06-17 03:56] LABS: CLARITY,URINE CLEAR (CLEAR)
[2021-06-17] MEDS ORDERED: PIPERACILLIN/TAZOBACTAM 3.375 GM in SODIUM CHLORIDE 0.9% MINIBAG 100 ML IV STA (04:02)
--- NOTE | 2021-06-17 08:13 | CT Report ---
PROCEDURE: Abdomen/Pelvis W INDICATIONS: RLQ pain, tenderness CONTRAST: IV CONTRAST: Isovue 300 ml: 100 PO CONTRAST: *NO PO CONTRAST TECHNIQUE: After the administration of IV contrast, 5 mm thick sections acquired from the diaphragms to the symp hysis. 5 mm thick coronal and sagittal reformats were acquired. For radiation dose reduction, the f ollowing was used: automated exposure control, adjustment of mA and/or kV according to patient size. COMPARISON: 07/24/2020 FINDINGS: Image quality: Excellent. ABDOMEN: Lung bases: Lung bases are clear. Heart size is normal. Solid organs: The liver demonstrates normal size. No liver lesions are detected. The spleen is mild ly enlarged, measuring 14.8 cm AP. No focal splenic lesions are seen. Gallbladder is largely collapsed at the time of this study. Biliary system is non dilated. Pancreas enhances normally. No adrenal nodules. Kidneys demonstrate normal size and enhancement, without hydronephrosis. Within the right kidney, the re is a nonobstructing stone anteriorly measuring 4 mm. Within the mid left kidney, there is a nonobs tructing 3 mm stone. Peritoneum and bowel: In this patient with this given history, scrutiny is given to the appendix. Th e appendix is abnormal, with wall thickening, with a total caliber of 1 cm. There is an appendicolith seen. Mild surrounding inflammatory change can be seen. No findings of perforation or abscess are se en. Bowel loops demonstrate normal wall thickness and caliber. No free fluid or air. Nodes and vessels: No retroperitoneal or mesenteric adenopathy by size criteria. Aorta and inferior vena cava are normal in size. Miscellaneous: No ventral hernias. PELVIS: Genitourinary: Bladder wall thickness is normal. Miscellaneous: No inguinal adenopathy. There is a mild fat-containing left inguinal hernia. Bones: No suspicious bony lesions. No vertebral body compression fractures. IMPRESSION: Acute appendicitis, without appendicolith seen. No findings of perforation or abscess can be seen. Incidental note is made of: Mild splenomegaly Bilateral nonobstructing kidney stones Mild fat-containing left inguinal hernia Note: No significant discrepancy from the preliminary report. Reviewed by: Jurgen Mejia MD on 06/17/2021 7:11 AM GENIA Approved by: Jurgen Mejia MD on 06/17/2021 7:11 AM GNEIA Station ID: [id number]
== END 2021-06-17 04:55 | disposition short-term general hospital (02) ==
LOC: ED 00:11
DX: K35.30 Acute appendicitis with localized peritonitis, without perforation or gangrene (principal)
CPT/HCPCS: 36415; 74177; 80053; 81003; 83690; 85025; 87635; 96365; 96375; 99284; Q9967; 81001; 87086

== ENCOUNTER 2021-06-17 04:49 | Outpatient (CLI) | payer OTHER | END 2021-06-17 04:50 | disposition short-term general hospital (02) | LOC: EMS 04:49 | PROVIDERS: ATTEND Emergency Medicine | DX: K37 Unspecified appendicitis (principal) | CPT/HCPCS: A0425; A0426 ==

== ENCOUNTER 2021-07-19 18:07 | Emergency (ER) | payer OTHER ==
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
[2021-07-19] MEDS: HYDROcod/ACETAM 5/325 MG TABLET PO STA (20:22)
[2021-07-19] MEDS: ONDANSETRON ODT 4 MG TABLET TL STA (20:23)
[2021-07-19 20:29] VITALS: BP 151/75
== END 2021-07-19 20:28 | disposition home or self-care (01) ==
LOC: ED 18:07
DX: S09.90XA Unspecified injury of head, initial encounter (principal); W20.8XXA Other cause of strike by thrown, projected or falling object, initial encounter; Y93.64 Activity, baseball
CPT/HCPCS: 70450; 99282; 99284; A9270; Q0162

== ENCOUNTER 2021-10-28 17:14 | Emergency (ER) | payer OTHER ==
[2021-10-28 17:21] VITALS: BP 143/55
--- NOTE | 2021-10-28 17:24 | ED Physician Documentation ---
PD HPI HEENT - Stated complaint Stated Complaint: BILAT EAR PX - Chief complaint Chief Complaint: Heent - History obtained from History obtained from: Patient - History of Present Illness Timing - onset: How many days ago (few) Timing - duration: Days (few) Timing - details: Gradual onset, Still present (has gotten notably worse the past day.) Location: Right ear (some pain.), Left ear (with decreased hearing, and marked pain.) Worsens: Swalllowing, Position Associated symptoms: Swollen nodes. No: Fever, Rhinorrhea, Cough Review of Systems Constitutional: denies: Fever, Chills Ears: reports: Loss of hearing, Ear pain. denies: Drainage/discharge Nose: denies: Rhinorrhea / runny nose, Congestion, Sinus pressure / pain Throat: denies: Sore throat Skin: denies: Rash PD PAST MEDICAL HISTORY - Past Medical History Cardiovascular: None Respiratory: Sleep apnea, CPAP use Neuro: None Endocrine/Autoimmune: None GI: None : Kidney stones HEENT: None Psych: None Musculoskeletal: Other Derm: Other - Past Surgical History Past Surgical History: Yes Ortho: ACL reconstruction, Shoulder arthroplasty - Present Medications Home Medications: Ambulatory Orders Medication Instructions Recorded Confirmed Melatonin 5 mg PO QPM PRN 12/01/18 06/17/21 Multivitamin [Daily Multiple 1 each PO DAILY 12/01/18 06/17/21 Vitamin] Trazodone HCl 50 mg PO QPM PRN 12/01/18 06/17/21 Cyclobenzaprine [Flexeril] 10 mg PO TID PRN #20 tablet 06/11/21 06/17/21 HYDROcod/ACETAM 5/325 [[place] 5/325] 1 - 2 tablet PO Q6H PRN #14 tablet 06/11/21 06/17/21 Doxycycline Hyclate 100 mg PO BID 7 Days #14 cap 10/28/21 HYDROcod/ACETAM 5/325 [Lindsay 5/325] 1 ea PO Q6H PRN #10 tablet 10/28/21 Ibuprofen [Motrin] 600 mg PO TID PRN #25 tab 10/28/21 Neomycin/Polymyx/Hc Otic Drops 4 drops EACHEAR QID 4 Days #10 ml 10/28/21 [Cortisporin Ear Susp] - Allergies Allergies/Adverse Reactions: Allergies Allergy/AdvReac Type Severity Reaction Status Date / Time No Known Drug Allergies Allergy Verified 10/28/21 17:21 - Social History Does the pt smoke?: No Smoking Status: Never smoker Does the pt drink ETOH?: Yes Does the pt have substance abuse?: No - Immunizations Immunizations are current?: Yes - POLST Patient has POLST: No PD ED PE NORMAL - Vitals Vital signs reviewed: Yes - General General: Alert and oriented X 3, Well developed/nourished, Other (appears in pain. He is driving himself home. ) - HEENT HEENT: Pharynx benign, Dentition benign, Other (both ear canals with redness and some exudate mildly (markedly red) with tissue swelling of canal and around it on the left. ). No: Ears normal - Neck Neck: Supple, no meningeal sign, Other (preauricular adenopathy on left. ) - Cardiac Cardiac: RRR, No murmur - Respiratory Respiratory: Clear bilaterally - Abdomen Abdomen: Soft, Non tender - Derm Derm: Normal color, Warm and dry - Neuro Neuro: Alert and oriented X 3, No motor deficit, Normal speech Results - Vitals Vitals: Oxygen O2 Source Room air PD MEDICAL DECISION MAKING - ED course Complexity details: considered differential (canals are swollen and with some exudate but the ittuse around ear canals also with redness and swelling. So will treat topical OE, and oral med (cellulitic component).), d/w patient Departure - Departure Disposition: 01 Home, Self Care Clinical Impression: Cellulitis of left ear canal Diffuse otitis externa, bilateral Qualifiers: Chronicity: acute Qualified Code(s): H60.313 - Diffuse otitis externa, bilateral Condition: Stable Record reviewed to determine appropriate education?: Yes Instructions: ED Cellulitis Facial, ED Otitis Externa Follow-Up: [facility] [Provider Group] Prescriptions: Neomycin/Polymyx/Hc Otic Drops [Cortisporin Ear Susp] 4 drops EACHEAR QID 4 Days #10 ml Doxycycline Hyclate 100 mg PO BID 7 Days #14 cap Ibuprofen [Motrin] 600 mg PO TID PRN #25 tab PRN Reason: Pain HYDROcod/ACETAM 5/325 [Lindsay 5/325] 1 ea PO Q6H PRN #10 tablet PRN Reason: Pain Comments: The does appear to be swelling and some exudate in both ear canals. However there is significant swelling of the tissue of the ear canal particularly on the left so I would treat this with both antibiotic eardrops as well as oral antibiotics. Ibuprofen 3 times a day with food for the next several days to a week. Add Tylenol every 4-6 hours if needed for pain or hydrocodone/acetaminophen every 4- 6 hours if needed for worse pain. Off work tomorrow to allow time to start improving. Stay well-hydrated. I transmitted your prescriptions to the [facility]. I am prescribing a short course of narcotic pain medication for you. These are potentially dangerous and addictive medications that should be used carefully. These medications may constipate you. Take an [id number] stool softener such as docusate twice daily with plenty of water while taking these medications. If you go 24 hours without a bowel movement, take ranv-moo-leikzyb MiraLAX, per package instructions. Do not drink or drive while taking these medications. If you received narcotic or sedating medications while in the emergency department do not drive for 24 hours. Store this medication in a safe, secure place and out of reach of children. It is a violation of federal law to give or sell this medication to another person or to use in a manner other than prescribed. The ED will not refill narcotic prescriptions, including prescriptions lost or stolen. You can dispose of unwanted medications at the [facility]'s office or at several pharmacies such as [facility]. Forms: Activity restrictions Discharge Date/Time: 10/28/21 17:51
[2021-10-28] MEDS ORDERED: IBUPROFEN 600 MG TABLET PO STA (17:33)
[2021-10-28] MEDS ORDERED: HYDROcod/ACET 5/325 Prepack 4 PO STA (17:34)
[2021-10-28] MEDS ORDERED: NEOMYCIN/POLYMYX/HC OTIC DROPS EACHEAR STA (17:34)
[2021-10-28] MEDS ORDERED: DOXYCYCLINE 100 MG TABLET PO STA (17:34)
== END 2021-10-28 17:51 | disposition home or self-care (01) ==
LOC: ED 17:14
DX: H60.12 Cellulitis of left external ear (principal); H60.313 Diffuse otitis externa, bilateral
CPT/HCPCS: 99282; 99284; A9270

== ENCOUNTER 2022-12-02 08:29 | Outpatient (CLI) | payer OTHER ==
--- NOTE | 2022-12-02 09:47 | MRI Report ---
PROCEDURE: LUMBAR SPINE WO INDICATIONS: LOW BACK PAIN TECHNIQUE: Noncontrast sagittal T1 spin echo and T2 fast echo, sagittal STIR, axial T1 and T2 fast spin echo thr ough the lumbar spine. In cases with scoliosis, additional coronal T2 fast spin echo may be performe d. COMPARISON: None. FINDINGS: Image quality: Excellent. Alignment and Curvature: There is normal bony alignment. Bone Marrow: Marrow is of normal overall signal. No acute vertebral body compression fractures. Spinal Cord: Conus medullaris terminates at the L1-L2 level. Visualized cord demonstrates normal si gnal and size. Paraspinous Soft Tissues: No paravertebral masses. T12-L1: Normal in appearance. L1-L2: Normal in appearance. L2-L3: Mild facet hypertrophy. No canal stenosis or foraminal stenosis. L3-L4: Minimal disc bulge. Mild facet hypertrophy. No canal stenosis or foraminal stenosis. L4-L5: Diffuse disc bulge. Superimposed relatively shallow right paracentral disc protrusion with m inimal inferior disc extrusion. Facet hypertrophy. Mild to moderate canal stenosis. Mild bilateral fo raminal stenosis. Facet hypertrophy. L5-S1: Disc bulge. Facet hypertrophy. No canal stenosis or significant foraminal stenosis. IMPRESSION: 1. There is multilevel underlying facet arthropathy. 2. At L4-L5, a right paracentral disc protrusion with minimal inferior disc extrusion contributes to mild to moderate canal stenosis. Reviewed by: Michael Kohler MD on 12/02/2022 9:46 AM PDT Approved by: Michael Kohler MD on 12/02/2022 9:46 AM PDT Station ID: [id number]
== END 2022-12-02 08:30 | disposition home or self-care (01) ==
LOC: DI 08:29
PROVIDERS: ATTEND Preventive Medicine Aerospace Medicine
DX: M51.26 Other intervertebral disc displacement, lumbar region (principal); M47.816 Spondylosis without myelopathy or radiculopathy, lumbar region; M47.817 Spondylosis without myelopathy or radiculopathy, lumbosacral region; M48.061 Spinal stenosis, lumbar region without neurogenic claudication; R20.0 Anesthesia of skin

== ENCOUNTER 2022-12-02 09:09 | Emergency (ER) | payer OTHER ==
[2022-12-02 09:24] VITALS: BP 149/78; O2SAT 98
[2022-12-02] MEDS ORDERED: KETOROLAC 30 MG/ML VIAL IM STA (10:52)
[2022-12-02] MEDS ORDERED: methocarbamoL 500 MG TABLET PO STA (10:52)
[2022-12-02] MEDS ORDERED: ACETAMINOPHEN 325 MG TABLET PO STA (10:52)
[2022-12-02] MEDS ORDERED: dexAMETHasone 4 MG TABLET PO STA (10:53)
--- NOTE | 2022-12-02 11:05 | ED Physician Documentation ---
PD HPI BACK PAIN - Stated complaint Stated Complaint: LOWER BACK SPASM - Chief complaint Chief Complaint: Back Pain - History obtained from History obtained from: Patient - History of Present Illness Timing - onset: How many weeks ago (02/18) Timing - duration: Weeks Timing - details: Gradual onset, Still present, Waxing and waning Location: Lower, Left Quality: Pain, Spasm, Aching Associated symptoms: Numbness (variable on left lower leg anterolateral to top of foot and great toe.). No: Fever, Weakness Worsened by: Movement, Lifting, Twisting Contributing factors: Twisting. No: Trauma Recently seen: Clinic (seen by [facility] with Rx Flexeril and NSAIDs. Moderate improvement. Scheduled for lumbar MRI that he had this morning.) Review of Systems : denies: Incontinent Neurologic: reports: Numbness (left foot variably). denies: Focal weakness PD PAST MEDICAL HISTORY - Past Medical History Past Medical History: Yes Cardiovascular: None Respiratory: Sleep apnea, CPAP use Neuro: None Endocrine/Autoimmune: None GI: None : Kidney stones HEENT: None Psych: None Musculoskeletal: Chronic back pain, Other Derm: Other - Past Surgical History Past Surgical History: Yes General: Appendectomy Ortho: ACL reconstruction, Shoulder arthroplasty - Present Medications Home Medications: Ambulatory Orders Medication Instructions Recorded Confirmed Melatonin 5 mg PO QPM PRN 12/01/18 12/02/22 Trazodone HCl 50 mg PO QPM PRN 12/01/18 12/02/22 Ibuprofen [Motrin] 600 mg PO TID PRN #25 tab 10/28/21 12/02/22 HYDROcod/ACETAM 5/325 [[place] 5/325] 1 ea PO Q6H PRN #18 tablet 12/02/22 Naproxen 500 mg PO BID #20 tab 12/02/22 dexAMETHasone [Decadron] 4 mg PO DAILY #5 tablet 12/02/22 tiZANidine [Zanaflex] 4 mg PO Q8H PRN #25 tablet 12/02/22 - Allergies Allergies/Adverse Reactions: Allergies Allergy/AdvReac Type Severity Reaction Status Date / Time No Known Drug Allergies Allergy Verified 12/02/22 09:20 - Social History Does the pt smoke?: No Smoking Status: Light tobacco smoker Does the pt drink ETOH?: Yes Does the pt have substance abuse?: No - Immunizations Immunizations are current?: Yes - POLST Patient has POLST: No PD ED PE NORMAL - Vitals Vital signs reviewed: Yes - General General: Alert and oriented X 3, Well developed/nourished, Other (appears in pain from low back. ) - Abdomen Abdomen: Soft, Non tender - Back Back: Other (tender in paralumbar muscles left side particular. Guarded ROM. ) - Derm Derm: Normal color, Warm and dry, No rash - Neuro Neuro: Alert and oriented X 3, No motor deficit, No sensory deficit, Other (normal foot lifting and movement. Normal ankle reflex. ) Results - Vitals Vitals: Oxygen O2 Source Room air PD Medical Decision Making - ED course Complexity details: reviewed old records (reviewed MRI result from this morning done outpt showing mild disc protrusions L3 and L5, with moderate borad based disc protrusion L4, wiht mild/moderate encroachment of neural foramina. ), considered differential, d/w patient ED course: has had episodes of low back pain but not chronic. Recent onset without notable trauma of back pain with left L4 area numbness and radiating pain. Seen in Clin ic and had outpt MRI today showing some disc prtrusion L4. No significant central canal impingement. mild/moderate foriminal encroachment. No urgent intervention indicated. Treat with meds/PT and f/u PCP. Departure - Departure Disposition: 01 Home, Self Care Clinical Impression: Sciatic leg pain Acute lumbar back pain Qualifiers: Back pain laterality: left Sciatica presence: with sciatica Sciatica laterality: sciatica of left side Qualified Code(s): M54.42 - Lumbago with sciatica, left side Condition: Stable Record reviewed to determine appropriate education?: Yes Instructions: ED Sciatica Follow-Up: [facility] [Provider Group] Prescriptions: dexAMETHasone [Decadron] 4 mg PO DAILY #5 tablet Naproxen 500 mg PO BID #20 tab HYDROcod/ACETAM 5/325 [[place] 5/325] 1 ea PO Q6H PRN #18 tablet PRN Reason: Pain tiZANidine [Zanaflex] 4 mg PO Q8H PRN #25 tablet PRN Reason: Spasms Comments: Your MRI from this morning showed some mild disc abnormalities at L3 and L5 which are likely insignificant. There is some mild to moderate disc protrusion at L4 but they describe only mild encroachment on the nerve root area. Findings to this degree are relatively common even in people without back pain. However it does correlate with the area of your pain in the nerve root irritation. Initially we would commonly treat for inflammation and muscle spasms with anti- inflammatories and muscle relaxants gentle range of motion and physical modalities such as physical therapy, chiropractic or massage. Adding in Tylenol 500 to 650 mg 4 times daily for pain or hydrocodone/acetaminophen if needed for worse pain at times. It would not be unusual for back pain episodes like this to take several weeks for resolution. Follow-up with your primary care and they likely may initiate some physical therapy or OMT. Limited activity over the next several days to week. Gentle stretching and heat are probably best. I sent a prescription to the [facility] pharmacy. Off work for the next week and follow-up with your primary care over the next several days. I am prescribing a short course of narcotic pain medication for you. These are potentially dangerous and addictive medications that should be used carefully. These medications may constipate you. Take an hack-suy-byxtbsp stool softener such as docusate twice daily with plenty of water while taking these medications. If you go 24 hours without a bowel movement, take pesh-[id number]-eumhjrp MiraLAX, per package instructions. Do not drink or drive while taking these medications. If you received narcotic or sedating medications while in the emergency department do not drive for 24 hours. Store this medication in a safe, secure place and out of reach of children. It is a violation of federal law to give or sell this medication to another person or to use in a manner other than prescribed. The ED will not refill narcotic prescriptions, including prescriptions lost or stolen. You can dispose of unwanted medications at the [facility]'s office or at several pharmacies such as [facility]. Forms: Activity restrictions Discharge Date/Time: 12/02/22 11:25
== END 2022-12-02 11:25 | disposition home or self-care (01) ==
LOC: ED 09:09
DX: M54.42 Lumbago with sciatica, left side (principal); F17.200 Nicotine dependence, unspecified, uncomplicated; M51.26 Other intervertebral disc displacement, lumbar region; M47.816 Spondylosis without myelopathy or radiculopathy, lumbar region; M47.817 Spondylosis without myelopathy or radiculopathy, lumbosacral region; M48.061 Spinal stenosis, lumbar region without neurogenic claudication; R20.0 Anesthesia of skin
CPT/HCPCS: 72148; 96372; 99283; A9270; J8540